=== PATIENT | female | born 1965 | race Caucasian/White ===

== ENCOUNTER 2016-12-14 08:16 | Inpatient (IN) | payer OTHER ==
[~2016-12-14] VITALS: Ht 165.1 cm; Wt 111.5 kg
[2016-12-14] MEDS ORDERED: SODIUM CHLORIDE 0.9% 1,000ML IV ONE (09:00)
[2016-12-14] MEDS ORDERED: ONDANSETRON 2MG/ML, 2ML IVPush ONE (09:00)
[2016-12-14] MEDS ORDERED: SODIUM CHLORIDE FLUSH 10ML SYR IVF ONE (09:00)
[2016-12-14] MEDS ORDERED: KETOROLAC 30 MG/1 ML IVPush ONE (09:00)
[2016-12-14] MEDS ORDERED: KETOROLAC 30 MG/1 ML ONE (09:20)
[2016-12-14] MEDS ORDERED: ONDANSETRON 2MG/ML, 2ML ONE (09:21)
[2016-12-14 09:48] LABS: HEMATOCRIT 40.8 % (34.6-47.8); HEMOGLOBIN 13.6 g/dL (11.7-16.4)
[2016-12-14 09:58] LABS: BLOOD UREA NITROGEN 13 mg/dL (7-18)
[2016-12-14] MEDS ORDERED: CEFTRIAXONE PMX 1GM/50ML 50 ML IVPB ONE (11:00)
[2016-12-14] MEDS ORDERED: CEFTRIAXONE PMX 1GM/50ML 50 ML ONE (11:05)
[2016-12-14] MEDS ORDERED: FLUT1DIS IH (11:49)
[2016-12-14] MEDS ORDERED: MONT10TA6 PO (11:49)
[2016-12-14] MEDS ORDERED: DIPH25CA61 PO (11:49)
[2016-12-14] MEDS ORDERED: CETI10CA PO (11:49)
[2016-12-14] MEDS ORDERED: HYDR1TAB16 PO (11:49)
[2016-12-14] MEDS ORDERED: ALBU8.5H3 INH (11:49)
[2016-12-14] MEDS ORDERED: LISI40TA PO (11:49)
[2016-12-14] MEDS ORDERED: ALPR-475 PO (11:49)
[2016-12-14] MEDS ORDERED: PROM25SU34 RC (11:49)
[2016-12-14] MEDS ORDERED: FAMO-79 PO (11:52)
[2016-12-14] MEDS ORDERED: SODIUM CHLORIDE 0.9% 1,000 ML IV ONE (12:09)
[2016-12-14] MEDS ORDERED: SODIUM CHLORIDE FLUSH 10ML SYR IVF PRN (12:30)
[2016-12-14] MEDS ORDERED: HYDROmorphone 1 MG/ML, 1ML IVPush PRN (12:30)
[2016-12-14] MEDS ORDERED: PROMETHAZINE 25 MG/ML, 1ML IM PRN (14:30)
[2016-12-14] MEDS ORDERED: ONDANSETRON ODT 4 MG PO PRN (14:30)
[2016-12-14] MEDS ORDERED: ACETAMINOPHEN 325 MG TABLET PO PRN (14:30)
[2016-12-14] MEDS ORDERED: ALBUTEROL SULFATE INH PRN (14:30)
[2016-12-14] MEDS: SODIUM CHLORIDE 0.9% 1,000 ML IV SCH ×2 (14:50→21:47)
[2016-12-14] MEDS: MORPHINE SULFATE 4 MG/ML, 1ML IVPush PRN ×2 (14:50→21:23)
[2016-12-14] MEDS: CETIRIZINE 10 MG TABLET PO SCH (15:30)
[2016-12-14] MEDS: CEFTRIAXONE PMX 2GM/50ML 50 ML IV SCH (16:22)
[2016-12-14 20:00] VITALS: BP 113/75
[2016-12-14] MEDS: TEMPLATE NON-FORMULARY MED. (Fluticasone/Salmeterol** (Advair 100-50 Diskus**) 1 PUFF) IH SCH (21:00)
[2016-12-14] MEDS: ONDANSETRON 2MG/ML, 2ML IVPush PRN (21:24)
[2016-12-15 02:00] VITALS: BP 159/101
[2016-12-15 05:02] LABS: HEMATOCRIT 34.2 % (34.6-47.8); HEMOGLOBIN 11.1 g/dL (11.7-16.4); WHITE BLOOD COUNT 12.6 x10^3/uL (3.4-10)
[2016-12-15 05:15] LABS: BLOOD UREA NITROGEN 11 mg/dL (7-18)
[2016-12-15] MEDS: SODIUM CHLORIDE 0.9% 1,000 ML IV SCH ×3 (05:19→19:59)
[2016-12-15] MEDS: MONTELUKAST 10 MG TABLET PO SCH (08:22)
[2016-12-15] MEDS: CETIRIZINE 10 MG TABLET PO SCH (08:22)
[2016-12-15] MEDS: FAMOTIDINE 20 MG TABLET PO SCH (08:22)
[2016-12-15] MEDS: MORPHINE SULFATE 4 MG/ML, 1ML IVPush PRN ×5 (08:22→22:04)
[2016-12-15] MEDS: ONDANSETRON 2MG/ML, 2ML IVPush PRN ×3 (08:23→22:04)
[2016-12-15 08:32] VITALS: BP 139/86
[2016-12-15] MEDS: LISINOPRIL 20 MG TABLET PO SCH (08:33)
[2016-12-15] MEDS: TEMPLATE NON-FORMULARY MED. (Fluticasone/Salmeterol** (Advair 100-50 Diskus**) 1 PUFF) IH SCH ×2 (09:00→20:01)
[2016-12-15 14:21] VITALS: BP 142/86
[2016-12-15] MEDS: CEFTRIAXONE PMX 2GM/50ML 50 ML IV SCH (15:24)
[2016-12-15] MEDS ORDERED: FENTANYL PF 100 MCG/2ML ONE ×2 (16:49→18:25)
[2016-12-15] MEDS ORDERED: HYDROmorphone 1 MG/ML, 1ML ONE (16:49)
[2016-12-15] MEDS ORDERED: DEXAMETHASONE 4 MG/ML, 1ML ONE (17:30)
[2016-12-15] MEDS ORDERED: METOCLOPRAMIDE 5 MG/ML, 2ML ONE (17:30)
[2016-12-15] MEDS ORDERED: PROPOFOL 10 MG/ML, 20ML ONE (17:30)
[2016-12-15] MEDS ORDERED: ONDANSETRON 2MG/ML, 2ML ONE ×2 (17:30→18:25)
[2016-12-15] MEDS ORDERED: hydrALAzine 20 MG/ML, 1ML IV PRN (18:00)
[2016-12-15] MEDS ORDERED: OXYcodone 5 MG/5 ML ORAL.SOL UDC PO PRN (18:00)
[2016-12-15] MEDS ORDERED: HYDROmorphone 1 MG/ML, 1ML IV PRN (18:00)
[2016-12-15] MEDS ORDERED: ONDANSETRON 2MG/ML, 2ML IVPush PRN (18:00)
[2016-12-15] MEDS ORDERED: MIDAZOLAM 1 MG/ML, 2ML IV PRN (18:00)
[2016-12-15] MEDS ORDERED: HYDROcodone/APAP 7.5-325MG/15ML UDC ONE (18:17)
[2016-12-15] MEDS: FENTANYL PF 100 MCG/2ML IV PRN ×2 (18:28→18:45)
[2016-12-15] MEDS ORDERED: HYDROcodone/APAP 7.5-325MG/15ML UDC PO PRN (18:30)
[2016-12-15] MEDS ORDERED: LABETALOL 5MG/ML, 20ML ONE (18:36)
[2016-12-15] MEDS: LABETALOL 5MG/ML, 20ML IV PRN ×3 (18:43→19:13)
[2016-12-15 20:01] VITALS: BP 146/97
[2016-12-16] MEDS: HYDROcodone/APAP 5/325 TABLET PO PRN ×2 (00:15→10:52)
[2016-12-16 00:17] VITALS: BP 141/85
[2016-12-16 03:35] VITALS: BP 150/94
[2016-12-16] MEDS: SODIUM CHLORIDE 0.9% 1,000 ML IV SCH ×3 (03:41→20:21)
[2016-12-16] MEDS: MORPHINE SULFATE 4 MG/ML, 1ML IVPush PRN ×4 (03:46→21:32)
[2016-12-16 05:33] LABS: HEMATOCRIT 33.8 % (34.6-47.8); HEMOGLOBIN 10.9 g/dL (11.7-16.4); WHITE BLOOD COUNT 10.2 x10^3/uL (3.4-10)
[2016-12-16 05:44] LABS: ASPARTATE AMINO TRANSFERASE 14 U/L (15-37); BLOOD UREA NITROGEN 8 mg/dL (7-18)
[2016-12-16 07:49] VITALS: BP 145/92
[2016-12-16] MEDS: CETIRIZINE 10 MG TABLET PO SCH (08:29)
[2016-12-16] MEDS: LISINOPRIL 20 MG TABLET PO SCH (08:29)
[2016-12-16] MEDS: FAMOTIDINE 20 MG TABLET PO SCH (08:29)
[2016-12-16] MEDS: MONTELUKAST 10 MG TABLET PO SCH (08:29)
[2016-12-16] MEDS: ONDANSETRON 2MG/ML, 2ML IVPush PRN ×2 (08:30→18:10)
[2016-12-16] MEDS: TEMPLATE NON-FORMULARY MED. (Fluticasone/Salmeterol** (Advair 100-50 Diskus**) 1 PUFF) IH SCH ×2 (09:00→20:25)
[2016-12-16 14:59] VITALS: BP 154/92
[2016-12-16] MEDS: CEFTRIAXONE PMX 2GM/50ML 50 ML IV SCH (15:00)
[2016-12-16 19:25] VITALS: BP 155/93
[2016-12-17] MEDS: MORPHINE SULFATE 4 MG/ML, 1ML IVPush PRN (00:38)
[2016-12-17] MEDS: ONDANSETRON 2MG/ML, 2ML IVPush PRN (00:38)
[2016-12-17 01:19] VITALS: BP 155/109
[2016-12-17 02:10] VITALS: BP 122/80
[2016-12-17] MEDS: HYDROcodone/APAP 5/325 TABLET PO PRN ×2 (02:30→10:00)
[2016-12-17] MEDS: SODIUM CHLORIDE 0.9% 1,000 ML IV SCH (02:32)
[2016-12-17 08:30] VITALS: BP 152/108
[2016-12-17 08:49] LABS: HEMATOCRIT 32.6 % (34.6-47.8); HEMOGLOBIN 10.7 g/dL (11.7-16.4); WHITE BLOOD COUNT 8.7 x10^3/uL (3.4-10)
[2016-12-17] MEDS: TEMPLATE NON-FORMULARY MED. (Fluticasone/Salmeterol** (Advair 100-50 Diskus**) 1 PUFF) IH SCH (09:00)
[2016-12-17 10:00] VITALS: BP 148/102
[2016-12-17] MEDS: MONTELUKAST 10 MG TABLET PO SCH (10:00)
[2016-12-17] MEDS ORDERED: LACTOBACILLUS CHEW TABLET PO SCH (10:00)
[2016-12-17] MEDS: CETIRIZINE 10 MG TABLET PO SCH (10:00)
[2016-12-17] MEDS: LISINOPRIL 20 MG TABLET PO SCH (10:00)
[2016-12-17] MEDS ORDERED: CEFDINIR 300 MG CAPSULE PO SCH (10:00)
[2016-12-17] MEDS ORDERED: HYDR-3240 PO (10:22)
[2016-12-17] MEDS ORDERED: CEFD300C37 PO (10:22)
[2016-12-17] MEDS ORDERED: ACID1TAB7 PO (10:22)
[2016-12-17] MEDS ORDERED: ONDA4TAB10 PO (12:27)
[2016-12-17] MEDS ORDERED: TAMS-11 PO (14:11)
== END 2016-12-17 14:36 | disposition home or self-care (01) | DRG 871 ==
LOC: ED 11:11 → EDIP 12:09 → 4WST 12:56
PROVIDERS: ADMIT Internal Medicine; ATTEND Internal Medicine
PROC: 0T778DZ Dilation of Left Ureter with Intraluminal Device, Via Natural or Artificial Opening Endoscopic (ICD-10-PCS; principal; 2016-12-15 18:30)
DX: A41.9 Sepsis, unspecified organism (principal); E43 Unspecified severe protein-calorie malnutrition; Z68.41 Body mass index [BMI] 40.0-44.9, adult; R18.8 Other ascites; N10 Acute pyelonephritis; N13.2 Hydronephrosis with renal and ureteral calculous obstruction; E74.39 Other disorders of intestinal carbohydrate absorption; F41.9 Anxiety disorder, unspecified; G89.29 Other chronic pain; I10 Essential (primary) hypertension; A49.8 Other bacterial infections of unspecified site; J45.909 Unspecified asthma, uncomplicated; K21.9 Gastro-esophageal reflux disease without esophagitis; M19.90 Unspecified osteoarthritis, unspecified site; Z80.9 Family history of malignant neoplasm, unspecified; Z98.84 Bariatric surgery status
CPT/HCPCS: 36415; 74176; 74420; 80048; 80053; 81001; 82040; 83036; 83605; 85025; 87040; 87077; 87086; 87186; 93005; 96361; 96365; 96375; J0696; J1100; J1170; J1885; J2405; J2704; J3010; C1758; C1769; C2617; J2765; J7030

== ENCOUNTER 2021-01-20 09:45 | Inpatient (IN) | payer OTHER ==
[~2021-01-20] VITALS: Ht 165.1 cm; Wt 99.5 kg
[~2021-01-20 09:45] MED LIST: ACID1TAB7 PO; ALBU8.5H8 INH; ALPR0.5T7 PO; CEFD300C37 PO; CETI10CA PO; DIPH25CA61 PO; FAMO-79 PO; FLUT1DIS IH; HYDR-2214 PO; HYDR1TAB16 PO; LISI40TA9 PO; MONT10TA6 PO; ONDA4TAB10 PO; PROM25SU34 RC; TAMS-11 PO
[2021-01-20] MEDS ORDERED: ONDANSETRON ODT 4 MG ONE (10:05)
--- NOTE | 2021-01-20 10:07 | NUR ---
PT MEDICATED WITH ZOFRAN FOR N/V
[2021-01-20] MEDS ORDERED: ONDANSETRON ODT 4 MG PO ONE (10:30)
[2021-01-20 11:12] LABS: BASOPHILS % (AUTO) 0 % (0-1); EOSINOPHILS % (AUTO) 0 % (1-7); LYMPHOCYTES % (AUTO) 10 % (22-44); MEAN CORPUSCULAR HEMOGLOBIN 29.2 pg (27.0-34.8); MEAN CORPUSCULAR HGB CONC 33.4 g/dL (32.4-35.8); MEAN PLATELET VOLUME 8.6 fL (7.4-10.4); MONOCYTES % (AUTO) 5 % (2-9); NEUTROPHILS % (AUTO) 85 % (42-75); PLATELET COUNT 238 x10^3/uL (130-400); RED CELL DISTRIBUTION WIDTH 15.1 % (9.6-15.2)
[2021-01-20 11:23] LABS: ALANINE AMINOTRANSFERASE 73 U/L (12-78); ANION GAP 9 mmol/L (5-15); CALCIUM 8.3 mg/dL (8.5-10.1); CHLORIDE 105 mmol/L (98-107); CREATININE 0.95 mg/dL (0.55-1.02)
[2021-01-20 11:25] LABS: ALKALINE PHOSPHATASE 99 U/L (45-117); BILIRUBIN,TOTAL 0.5 mg/dL (0.2-1.0); TOTAL PROTEIN 7.2 g/dL (6.4-8.2)
--- NOTE | 2021-01-20 11:57 | NUR ---
PT PROVIDED URINE SAMPLE. UA COLLECTED AND TAKEN TO LAB. PT STATES NAUSEA IS BETTER AFTER ZOFRAN. PT PROVIDED WATER FOR PO CHALLENGE.
[2021-01-20 12:21] LABS: MICROSCOPIC INDICATED
[2021-01-20] MEDS ORDERED: ONDANSETRON 2MG/ML, 2ML ONE (12:21)
[2021-01-20] MEDS ORDERED: SODIUM CHLORIDE 0.9% 1,000ML IVBOLUS ONE (12:30)
[2021-01-20] MEDS ORDERED: ONDANSETRON 2MG/ML, 2ML IVPush ONE ×2 (12:30→13:00)
--- NOTE | 2021-01-20 12:43 | NUR ---
PIV PLACED. IVF RUNNING. PER ERMD ONLY GIVE ZOFRAN 4MG IV, PT ALREADY RECEIVED ZOFRAN 4MG ODT IN TRIAGE.
[2021-01-20] MEDS ORDERED: KETOROLAC 30 MG/1 ML ONE (13:27)
[2021-01-20] MEDS ORDERED: KETOROLAC 30 MG/1 ML IVPush ONE (13:30)
--- NOTE | 2021-01-20 13:33 | NUR ---
PT OXYGEN LEVEL 80% RA WHILE SLEEPING. PT PLACED ON OXYGEN 2L VIA NC, 96%. [employer] CONSULTANT PER JUL. ERMD AT BEDSIDE TO UPDATE PT ON POC. PT TO BE ADMIT.
[2021-01-20] MEDS ORDERED: DEXAMETHASONE 4 MG/ML, 1ML ONE (13:45)
[2021-01-20] MEDS ORDERED: DOXYCYCLINE 100MG TABLET ONE (13:46)
[2021-01-20] MEDS ORDERED: DEXAMETHASONE 4 MG/ML, 1ML IV ONE (14:00)
[2021-01-20] MEDS ORDERED: CEFTRIAXONE 1,000 MG in DEXTROSE 5% 50 ML IVPB ONE (14:00)
[2021-01-20] MEDS ORDERED: DOXYCYCLINE 100MG TABLET PO ONE (14:00)
--- NOTE | 2021-01-20 14:05 | NUR ---
TASK RN- ABX ADMINISTERED AFTER CULTURES DRAWN. [facility] MD DAMON AT BEDSIDE FOR EVAL
--- NOTE | 2021-01-20 14:24 | NUR ---
HOSPITAL BED REQUESTED
[2021-01-20] MEDS ORDERED: ALBUTEROL HFA 90 MCG/SPRAY INH PRN (14:30)
[2021-01-20] MEDS ORDERED: ACETAMINOPHEN 325 MG TABLET PO PRN (14:30)
[2021-01-20] MEDS ORDERED: PROMETHAZINE 25 MG SUPP PR PRN (14:30)
[2021-01-20] MEDS ORDERED: ONDANSETRON 2MG/ML, 2ML IVPush PRN (14:30)
[2021-01-20] MEDS: CEFTRIAXONE 2,000 MG in DEXTROSE 5% 50 ML IV SCH (14:30)
[2021-01-20 14:37] LABS: C-REACTIVE PROTEIN, QUANT 4.8 mg/dL (0.02-0.49)
[2021-01-20 14:39] LABS: D-DIMER (DIC) 0.41 ug/mlFEU (0.00-0.52); PROTIME 10.7 Seconds (9.6-11.5)
--- NOTE | 2021-01-20 15:01 | NUR ---
REPORT GIVEN TO GEETA DURON. PT RTG TO ROOM [id number]
[2021-01-20] MEDS ORDERED: ESCI20TA8 PO (17:16)
[2021-01-20] MEDS: SODIUM CHLORIDE 0.9% 1,000 ML IV SCH (17:24)
[2021-01-20] MEDS: LACTOBACILLUS CHEW TABLET PO SCH ×2 (17:25→21:51)
[2021-01-20] MEDS: ENOXAPARIN 40 MG/0.4 ML SQ SCH (17:25)
[2021-01-20 17:44] VITALS: BP 125/95
[2021-01-20] MEDS: INSULIN LISPRO 100 UNITS/ML, PEN SQ-INSULIN SCH ×2 (18:40→22:01)
[2021-01-20 19:54] VITALS: BP 115/75
[2021-01-21 00:49] VITALS: BP 112/75
[2021-01-21] MEDS: ENOXAPARIN 40 MG/0.4 ML SQ SCH ×2 (05:49→17:27)
[2021-01-21 06:53] LABS: ANION GAP 5 mmol/L (5-15); CALCIUM 7.7 mg/dL (8.5-10.1); CHLORIDE 109 mmol/L (98-107); CREATININE 0.77 mg/dL (0.55-1.02)
[2021-01-21 07:13] VITALS: BP 106/71
[2021-01-21] MEDS: SODIUM CHLORIDE 0.9% 1,000 ML IV SCH ×2 (07:35→23:50)
[2021-01-21] MEDS: INSULIN LISPRO 100 UNITS/ML, PEN SQ-INSULIN SCH ×4 (07:35→21:35)
[2021-01-21] MEDS: MONTELUKAST 10 MG TABLET PO SCH (07:36)
[2021-01-21] MEDS: LISINOPRIL 40 MG TABLET PO SCH (07:37)
[2021-01-21] MEDS: TAMSULOSIN 0.4 MG CAP.ER.24H PO SCH (07:38)
[2021-01-21] MEDS: DEXAMETHASONE 4 MG TABLET PO SCH (07:38)
[2021-01-21] MEDS: CETIRIZINE 10 MG TABLET PO SCH (07:38)
[2021-01-21] MEDS: LACTOBACILLUS CHEW TABLET PO SCH ×3 (07:39→21:35)
[2021-01-21] MEDS: FLUTICASONE/VILANTEROL 100-25MCG/INH INH SCH (08:20)
[2021-01-21] MEDS: ONDANSETRON ODT 4 MG PO PRN (08:20)
[2021-01-21 09:45] LABS: C-REACTIVE PROTEIN, QUANT 4.1 mg/dL (0.02-0.49)
[2021-01-21] MEDS ORDERED: DEXA4TAB66 PO (10:40)
[2021-01-21] MEDS ORDERED: INSU100I11 SQ-INSULIN (10:40)
[2021-01-21] MEDS ORDERED: ACID1TAB7 PO (10:40)
[2021-01-21] MEDS ORDERED: TAMS-11 PO (10:40)
[2021-01-21] MEDS ORDERED: AMOX-291 PO (10:41)
[2021-01-21] MEDS ORDERED: DOXY100C5 PO (10:41)
[2021-01-21] MEDS ORDERED: APIX5TAB4 PEG (12:16)
[2021-01-21] MEDS ORDERED: METF850T10 PO (12:41)
[2021-01-21 12:44] VITALS: BP 108/74
[2021-01-21] MEDS: CEFTRIAXONE 2,000 MG in DEXTROSE 5% 50 ML IV SCH (14:30)
[2021-01-21] MEDS: metFORMIN 850 MG TABLET PO SCH (17:22)
[2021-01-21 19:45] VITALS: BP 119/80
[2021-01-22 00:06] VITALS: BP 119/84
[2021-01-22] MEDS: ENOXAPARIN 40 MG/0.4 ML SQ SCH (05:26)
[2021-01-22] MEDS: INSULIN LISPRO 100 UNITS/ML, PEN SQ-INSULIN SCH (07:41)
[2021-01-22] MEDS: MONTELUKAST 10 MG TABLET PO SCH (07:41)
[2021-01-22] MEDS: DEXAMETHASONE 4 MG TABLET PO SCH (07:42)
[2021-01-22] MEDS: LISINOPRIL 40 MG TABLET PO SCH (07:42)
[2021-01-22] MEDS: TAMSULOSIN 0.4 MG CAP.ER.24H PO SCH (07:42)
[2021-01-22] MEDS: CETIRIZINE 10 MG TABLET PO SCH (07:42)
[2021-01-22] MEDS: LACTOBACILLUS CHEW TABLET PO SCH (07:42)
[2021-01-22] MEDS: metFORMIN 850 MG TABLET PO SCH (07:42)
[2021-01-22] MEDS: FLUTICASONE/VILANTEROL 100-25MCG/INH INH SCH (07:43)
[2021-01-22 07:56] VITALS: BP 119/83
[2021-01-22] MEDS: ONDANSETRON ODT 4 MG PO PRN (08:06)
== END 2021-01-22 10:35 | disposition home or self-care (01) | DRG 871 ==
LOC: ED 12:57 → EDIP 13:44 → 3N 16:53
PROVIDERS: ADMIT Internal Medicine; ATTEND Internal Medicine
DX: A41.89 Other specified sepsis (principal); J96.01 Acute respiratory failure with hypoxia; J12.82 Pneumonia due to coronavirus disease 2019; U07.1 COVID-19; E11.9 Type 2 diabetes mellitus without complications; E66.9 Obesity, unspecified; E86.0 Dehydration; I10 Essential (primary) hypertension; J45.909 Unspecified asthma, uncomplicated; K52.9 Noninfective gastroenteritis and colitis, unspecified; Z96.651 Presence of right artificial knee joint; F41.9 Anxiety disorder, unspecified; K21.9 Gastro-esophageal reflux disease without esophagitis; M19.90 Unspecified osteoarthritis, unspecified site; Z68.36 Body mass index [BMI] 36.0-36.9, adult; Z87.442 Personal history of urinary calculi; Z90.49 Acquired absence of other specified parts of digestive tract; Z88.5 Allergy status to narcotic agent; Z88.1 Allergy status to other antibiotic agents; Z91.041 Radiographic dye allergy status
CPT/HCPCS: 36415; 36600; 71045; 80048; 80053; 81001; 82330; 82728; 82803; 82962; 83036; 83605; 83615; 83690; 84145; 85025; 85049; 85379; 85384; 85610; 85730; 86140; 87040; 87086; 96365; 96375; 99285; G0378; J0696; J1100; J1650; J1885; J2405; Q0162; J1815; J7030